=== PATIENT | female | born 1990 | race Caucasian/White ===

== ENCOUNTER 2020-12-25 09:22 | Outpatient (CLI) | payer OTHER ==
[~2020-12-25] VITALS: Ht 162.6 cm; Wt 79.5 kg
[2020-12-25 09:53] VITALS: BP 114/58
[2020-12-25 10:03] LABS: MICROSCOPIC INDICATED
[2020-12-25] MEDS ORDERED: DIPHENOXYLATE/ATROPINE TABLET PO ONE (10:30)
[2020-12-25] MEDS ORDERED: LACTATED RINGERS 1,000 ML IVBOLUS ONE (10:30)
[2020-12-25 10:32] LABS: CLOSTRIDIUM DIFFICILE ANTIGEN NEGATIVE; CLOSTRIDIUM DIFFICILE TOXIN NEGATIVE (Negative)
[2020-12-25 14:23] LABS: CRYPTOSPORIDIUM ANTIGEN Negative (Negative)
== END 2020-12-25 11:43 | disposition home or self-care (01) ==
LOC: LDOP 09:22
PROVIDERS: ATTEND Obstetrics & Gynecology
DX: O26.893 Other specified pregnancy related conditions, third trimester (principal); R10.9 Unspecified abdominal pain; R19.7 Diarrhea, unspecified; Z3A.35 35 weeks gestation of pregnancy
CPT/HCPCS: 59025; 81001; 87046; 87077; 87086; 87324; 87328; 87329; 87427; 96360; J7120

== ENCOUNTER 2021-01-16 14:48 | Outpatient (CLI) | payer OTHER ==
[~2021-01-16] VITALS: Ht 162.6 cm; Wt 80.4 kg
== END 2021-01-16 15:00 | disposition home or self-care (01) ==
LOC: LDOP 14:48
PROVIDERS: ATTEND Obstetrics & Gynecology
DX: O36.8330 Maternal care for abnormalities of the fetal heart rate or rhythm, third trimester, not applicable or unspecified (principal); Z3A.39 39 weeks gestation of pregnancy
CPT/HCPCS: 76819

== ENCOUNTER 2021-01-18 04:19 | Inpatient (IN) | payer OTHER ==
[~2021-01-18] VITALS: Ht 162.6 cm; Wt 76.0 kg
[2021-01-18] MEDS ORDERED: NEWBORN KIT ONE (04:44)
[2021-01-18] MEDS ORDERED: LIDOCAINE 1%, 20ML ONE (04:45)
[2021-01-18] MEDS ORDERED: OXYTOCIN 30U/ 0.9% NaCL 500ML 500 ML ONE (04:46)
[2021-01-18] MEDS ORDERED: MISOPROSTOL 200 MCG TABLET ONE ×2 (04:46)
[2021-01-18] MEDS ORDERED: FENTANYL PF 100 MCG/2ML ONE (05:00)
[2021-01-18] MEDS ORDERED: TERBUTALINE 1 MG/ML, 1ML SQ PRN (05:00)
[2021-01-18] MEDS ORDERED: ONDANSETRON 2MG/ML, 2ML IVPush PRN (05:00)
[2021-01-18] MEDS ORDERED: D5%-LACTATED RINGERS 1,000 ML IV SCH (05:00)
[2021-01-18] MEDS ORDERED: LACTATED RINGERS 1,000 ML IV SCH ×2 (05:00→06:30)
[2021-01-18] MEDS ORDERED: FENTANYL PF 100 MCG/2ML IV PRN (05:00)
[2021-01-18] MEDS ORDERED: TERBUTALINE 1 MG/ML, 1ML IVPush PRN (05:00)
[2021-01-18] MEDS ORDERED: OXYTOCIN 30U/ 0.9% NaCL 500ML 500 ML IV ONE (05:00)
[2021-01-18] MEDS ORDERED: CALCIUM CARBONATE 500 MG TAB.CHEW ONE (05:00)
[2021-01-18] MEDS ORDERED: FENTANYL PF 100 MCG/2ML IVPush PRN (05:00)
[2021-01-18] MEDS ORDERED: CALCIUM CARBONATE 500 MG TAB.CHEW PO PRN (05:00)
[2021-01-18 05:32] LABS: BASOPHILS % (AUTO) 0 % (0-1); EOSINOPHILS % (AUTO) 0 % (1-7); LYMPHOCYTES % (AUTO) 29 % (22-44); MEAN CORPUSCULAR HEMOGLOBIN 31.4 pg (27.0-34.8); MEAN CORPUSCULAR HGB CONC 33.7 g/dL (32.4-35.8); MONOCYTES % (AUTO) 11 % (2-9); NEUTROPHILS % (AUTO) 60 % (42-75); PLATELET COUNT 252 x10^3/uL (130-400); RED BLOOD COUNT 4.39 x10^6/uL (3.82-5.3); RED CELL DISTRIBUTION WIDTH 18.5 % (9.6-15.2)
[2021-01-18] MEDS ORDERED: FENTANYL/BUPIV./NS/PF 250 ML EPIDCONT ONE (06:04)
[2021-01-18] MEDS ORDERED: BUPIVACAINE 0.25% ONE (06:04)
[2021-01-18] MEDS ORDERED: EPHEDRINE 50 MG/ML, 1ML IVPush PRN (06:30)
[2021-01-18] MEDS ORDERED: FENTANYL/BUPIV./NS/PF 250 ML EPIDCONT SCH (06:30)
[2021-01-18] MEDS ORDERED: LACTATED RINGERS 1,000 ML IVBOLUS PRN (06:30)
[2021-01-18] MEDS ORDERED: MISOPROSTOL 200 MCG TABLET PR PRN (08:00)
[2021-01-18] MEDS ORDERED: OXYTOCIN 10 UNITS/ML, 1ML IM PRN (08:00)
[2021-01-18] MEDS ORDERED: METHYLERGONOVINE 0.2 MG/ML IM PRN (08:00)
[2021-01-18] MEDS: OXYTOCIN 30U/ 0.9% NaCL 500ML 500 ML IV SCH ×2 (08:00→18:00)
[2021-01-18] MEDS ORDERED: ACETAMINOPHEN 325 MG TABLET PO PRN (08:00)
[2021-01-18] MEDS ORDERED: CARBOPROST TROMETHAMINE 250 MCG/ML, 1ML IM PRN (08:00)
[2021-01-18] MEDS ORDERED: ONDANSETRON 2MG/ML, 2ML IV PRN (08:00)
[2021-01-18] MEDS ORDERED: SIMETHICONE 80 MG CHEW TAB PO PRN (08:00)
[2021-01-18] MEDS ORDERED: HYDROcodone/APAP 5/325 TABLET PO PRN (08:00)
[2021-01-18 08:52] LABS: MICROSCOPIC INDICATED
[2021-01-18 09:00] LABS: AMPHETAMINE SCREEN, URINE Negative (Negative); BARBITURATE SCREEN, URINE Negative (Negative); BENZODIAZEPINE SCREEN, URINE Negative (Negative); CANNABINOID SCREEN, URINE Negative (Negative); COCAINE SCREEN, URINE Negative (Negative); METHADONE SCREEN, URINE Negative (Negative); OPIATE SCREEN, URINE Negative (Negative)
[2021-01-18] MEDS: PRENATAL VIT/IRON/FA 1 EACH TABLET PO SCH (09:00)
[2021-01-18] MEDS: IBUPROFEN 600 MG TABLET PO PRN ×2 (09:46→16:10)
[2021-01-18 10:25] VITALS: BP 100/47
[2021-01-18] MEDS ORDERED: ACETAMINOPHEN 325 MG TABLET PO ONE (11:00)
[2021-01-18] MEDS ORDERED: GENTAMICIN PER PHARMACY MC PRN (11:00)
[2021-01-18 11:54] LABS: MICROSCOPIC INDICATED
[2021-01-18] MEDS ORDERED: PHARMACOKINETIC MONITORING MC PRN (12:00)
[2021-01-18 12:08] LABS: BASOPHILS % (AUTO) 0 % (0-1); EOSINOPHILS % (AUTO) 0 % (1-7); LYMPHOCYTES % (AUTO) 13 % (22-44); MEAN CORPUSCULAR HEMOGLOBIN 31.1 pg (27.0-34.8); MEAN CORPUSCULAR HGB CONC 33.4 g/dL (32.4-35.8); MEAN PLATELET VOLUME 7.8 fL (7.4-10.4); MONOCYTES % (AUTO) 8 % (2-9); NEUTROPHILS % (AUTO) 79 % (42-75); PLATELET COUNT 201 x10^3/uL (130-400); RED BLOOD COUNT 3.48 x10^6/uL (3.82-5.3); RED CELL DISTRIBUTION WIDTH 18.1 % (9.6-15.2)
[2021-01-18] MEDS: GENTAMICIN 130 MG in SODIUM CHLORIDE 0.9% 50 ML IV SCH ×2 (12:09→20:57)
[2021-01-18 12:20] LABS: ALANINE AMINOTRANSFERASE 22 U/L (12-78); ALBUMIN 1.9 g/dL (3.4-5.0); ANION GAP 12 mmol/L (5-15); CALCIUM 7.8 mg/dL (8.5-10.1); CHLORIDE 103 mmol/L (98-107); CREATININE 0.56 mg/dL (0.55-1.02)
[2021-01-18 12:21] LABS: ALKALINE PHOSPHATASE 138 U/L (45-117); BILIRUBIN,TOTAL 0.3 mg/dL (0.2-1.0)
[2021-01-18] MEDS: AMPICILLIN 2 GM in SODIUM CHLORIDE 0.9% 100 ML IV SCH ×2 (12:57→19:00)
[2021-01-18 14:00] VITALS: BP 128/77
[2021-01-18 17:22] VITALS: BP 118/77
[2021-01-18 20:00] VITALS: BP 109/66
[2021-01-18] MEDS: DOCUSATE 100 MG CAPSULE PO PRN (21:17)
[2021-01-18] MEDS: HYDROcodone/APAP 5/325 TABLET PO PRN (21:18)
[2021-01-19 01:00] VITALS: BP 99/63
[2021-01-19] MEDS: AMPICILLIN 2 GM in SODIUM CHLORIDE 0.9% 100 ML IV SCH ×4 (01:03→19:49)
[2021-01-19] MEDS: IBUPROFEN 600 MG TABLET PO PRN ×4 (01:15→19:50)
[2021-01-19] MEDS: HYDROcodone/APAP 5/325 TABLET PO PRN ×2 (01:16→07:38)
[2021-01-19] MEDS: OXYTOCIN 30U/ 0.9% NaCL 500ML 500 ML IV SCH ×2 (04:00→14:00)
[2021-01-19 04:40] VITALS: BP 103/66
[2021-01-19] MEDS: GENTAMICIN 130 MG in SODIUM CHLORIDE 0.9% 50 ML IV SCH ×3 (04:43→20:33)
[2021-01-19] MEDS: PRENATAL VIT/IRON/FA 1 EACH TABLET PO SCH (07:38)
[2021-01-19] MEDS: DOCUSATE 100 MG CAPSULE PO PRN ×2 (07:38→19:50)
[2021-01-19 07:50] VITALS: BP 113/77
[2021-01-19 12:30] VITALS: BP 108/70
[2021-01-19] MEDS ORDERED: MEASLES,MUMPS&RUBELLA VACC/PF 0.5 ML SQ-VACC ONE (16:00)
[2021-01-19 16:35] VITALS: BP 110/73
[2021-01-19 20:00] VITALS: BP 108/65
[2021-01-20] MEDS: OXYTOCIN 30U/ 0.9% NaCL 500ML 500 ML IV SCH
[2021-01-20] MEDS: IBUPROFEN 600 MG TABLET PO PRN (01:38)
[2021-01-20] MEDS: AMPICILLIN 2 GM in SODIUM CHLORIDE 0.9% 100 ML IV SCH (01:38)
[2021-01-20] MEDS: GENTAMICIN 130 MG in SODIUM CHLORIDE 0.9% 50 ML IV SCH (04:34)
[2021-01-20 04:35] VITALS: BP 125/84
[2021-01-20] MEDS ORDERED: AMOXICILLIN/CLAV 875-125MG TABLET PO SCH (05:30)
[2021-01-20 06:55] VITALS: BP 117/78
[2021-01-20] MEDS ORDERED: HYDR-2214 PO (08:07)
[2021-01-20] MEDS ORDERED: IBUP-1222 PO (08:08)
[2021-01-20] MEDS ORDERED: AMOX1TAB64 PO (08:08)
[2021-01-20] MEDS ORDERED: SENN-190 PO (08:08)
== END 2021-01-20 10:22 | disposition home or self-care (01) | DRG 806 ==
LOC: LDOP 04:19 → LDIP 04:37 → 2NW 10:11
PROVIDERS: ADMIT Obstetrics & Gynecology; ATTEND Obstetrics & Gynecology
PROC: 10E0XZZ Delivery of Products of Conception, External Approach (ICD-10-PCS; principal; 2021-01-18)
PROC: 0KQM0ZZ Repair Perineum Muscle, Open Approach (ICD-10-PCS; 2021-01-18)
PROC: 10907ZC Drainage of Amniotic Fluid, Therapeutic from Products of Conception, Via Natural or Artificial Opening (ICD-10-PCS; 2021-01-18)
PROC: 3E0R3BZ Introduction of Anesthetic Agent into Spinal Canal, Percutaneous Approach (ICD-10-PCS; 2021-01-18)
PROC: 00HU33Z Insertion of Infusion Device into Spinal Canal, Percutaneous Approach (ICD-10-PCS; 2021-01-18)
DX: O69.1XX0 Labor and delivery complicated by cord around neck, with compression, not applicable or unspecified (principal); O98.52 Other viral diseases complicating childbirth; Z37.0 Single live birth; Z20.822 Contact with and (suspected) exposure to COVID-19; B00.9 Herpesviral infection, unspecified; O66.0 Obstructed labor due to shoulder dystocia; O70.1 Second degree perineal laceration during delivery; Z3A.39 39 weeks gestation of pregnancy
CPT/HCPCS: 36415; 80053; 80307; 81001; 85025; 86592; 86850; 86900; 87040; 87086; 87635; 90707; G0378; J0290; J3010; J1580; J7120